=== PATIENT | male | born 1965 | race Hispanic/Latino ===

== ENCOUNTER 2021-03-24 11:39 | Outpatient (CLI) | payer OTHER | END 2021-03-24 11:40 | disposition home or self-care (01) | LOC: BICRAD 11:39 | PROVIDERS: ATTEND Chiropractor | DX: M25.562 Pain in left knee (principal); M17.12 Unilateral primary osteoarthritis, left knee ==

== ENCOUNTER 2023-11-29 14:33 | Outpatient (CLI) | payer OTHER | END 2023-11-29 14:34 | disposition home or self-care (01) | LOC: BICRAD 14:33 | PROVIDERS: ATTEND Chiropractor | DX: M25.561 Pain in right knee (principal); M17.11 Unilateral primary osteoarthritis, right knee; M25.461 Effusion, right knee ==